=== PATIENT | male | born 1935 | race African-American/Black ===

== ENCOUNTER 2021-03-25 06:50 | Inpatient (IN) | payer MEDICARE, OTHER ==
[~2021-03-25] VITALS: Ht 182.9 cm; Wt 79.6 kg
[2021-03-25] MEDS: NOREPINEPHRINE 4 MG/D5%-WATER 250 ML IV PRN ×2 (06:50→10:54)
[2021-03-25 07:15] LABS: BASOPHILS % (AUTO) 0.9 % (0.0-2.0); EOSINOPHILS % (AUTO) 0.5 % (1.0-6.0); HEMATOCRIT 42.7 % (41-53); HEMOGLOBIN 13.2 g/dL (13.5-17.5); LYMPHOCYTES # (AUTO) 4.4 K/uL (1.0-4.8); MEAN CORPUSCULAR HEMOGLOBIN 30.9 pg (26.0-34.0); MEAN CORPUSCULAR HGB CONC 30.9 G/dL (31.0-37.0); MEAN CORPUSCULAR VOLUME 100 fL (80-100); MONOCYTES # (AUTO) 0.5 K/uL (0.1-1.0); MONOCYTES % (AUTO) 4.9 % (2.0-9.0); NEUTROPHILS # (AUTO) 4.5 K/uL (1.8-7.7); NEUTROPHILS % (AUTO) 47.7 % (40.0-70.0); PLATELET COUNT (AUTO) 288 K/uL (150-450); RED BLOOD CELL COUNT(AUTO) 4.27 MIL/uL (4.50-5.90); RED CELL DISTRIBUTION WIDTH 16.1 % (11.5-14.5)
[2021-03-25] MEDS ORDERED: SODIUM BICARBONATE 50 MEQ/50 ML VIAL ONE (07:17)
[2021-03-25] MEDS ORDERED: HEPARIN SODIUM 1000 UNITS/NS 1,000 ML ONE (07:17)
[2021-03-25] MEDS ORDERED: IOHEXOL 300 MG/ML 100 ML VIAL ONE (07:17)
[2021-03-25] MEDS ORDERED: IOHEXOL 300 MG/ML 150 ML VIAL ONE (07:17)
[2021-03-25] MEDS ORDERED: IOHEXOL 300 MG/ML 50 ML VIAL ONE (07:17)
[2021-03-25] MEDS ORDERED: LIDOCAINE/PF 1% 30 ML VIAL ONE (07:17)
[2021-03-25 07:28] LABS: ABG BASE EXCESS -22.6 mmol/L (-2.0-3.0); ABG CARBOXYHEMOGLOBIN 0.3 % (0.0-1.5); ABG METHEMOGLOBIN 0.3 % (0.0-1.5); ABG OXYGEN SATURATION 86.9 % (95.0-98.0); ABG OXYHEMOGLOBIN 86.4 % (94.0-100.0); ABG PCO2 89 mmHg (35-45); ABG PH 6.764 (7.35-7.450); ABG TOTAL HEMOGLOBIN 13.9 G/dL (12.0-18.0); PO2, ARTERIAL BG 93.3 mmHg (71.0-79.0); SOURCE, BLOOD GAS ARTERIAL; TEMPERATURE, FAHRENHEIT, BG 98.6 FAHREN (96.0-98.6)
[2021-03-25 07:29] LABS: ABG HCO3 7.7 mmol/L (22.0-26.0); INSPIRATORY TIME, BG 0 SEC; O2 DEVICE,BLOOD GAS VENTILATOR (ROOM AIR); PEEP,BG 0 cm H2O; SITE, BLOOD GAS RT FEMORAL; SPONTANEOUS VT, BG 620 ml; VT, ABG 550 ml
[2021-03-25 07:29] LABS: INR 1.5 (0.9-1.1); PROTHROMBIN TIME 15.2 SEC (9.4-11.6)
[2021-03-25 07:51] LABS: COVID AG,FIA SOURCE NASOPHARYNGEAL
[2021-03-25 07:56] VITALS: BP 92/58
[2021-03-25 07:56] LABS: CALCIUM, TOTAL 9.9 mg/dL (8.8-10.5); CREATININE 1.88 mg/dL (0.60-1.30); POTASSIUM 4.2 mmol/L (3.5-5.1)
[2021-03-25] MEDS ORDERED: VERAPAMIL HCL 2.5 MG/ML 2 ML VIAL ONE (07:57)
[2021-03-25] MEDS ORDERED: NITROGLYCERIN 50 MG/D5% WATER 250 ML ONE (07:58)
[2021-03-25 08:06] LABS: ALBUMIN 2.8 g/dL (3.4-5.0); BILIRUBIN,TOTAL 0.7 mg/dL (0.1-1.0); TOTAL PROTEIN, SERUM 7.4 g/dL (6.4-8.2)
[2021-03-25] MEDS ORDERED: FentaNYL CITRATE PF 100 MCG/2 ML VIAL ONE (08:08)
[2021-03-25] MEDS ORDERED: PHENYLEPHRINE 200 MG/D5%-WATER 0 ML IV ONE (08:10)
[2021-03-25] MEDS ORDERED: SODIUM CHLORIDE 0.9% 500 ML IV ONE (08:15)
[2021-03-25] MEDS ORDERED: IOHEXOL 300 MG/ML 150 ML VIAL IARTER ONE (08:15)
[2021-03-25] MEDS ORDERED: FentaNYL CITRATE PF 100 MCG/2 ML VIAL IVP ONE (08:15)
[2021-03-25] MEDS ORDERED: HEPARIN SODIUM 1000 UNITS/NS 1,000 ML IARTER ONE (08:15)
[2021-03-25] MEDS ORDERED: LIDOCAINE 1% 30 ML/SOD BICARB 8.4% 4 ML SQ ONE (08:15)
[2021-03-25] MEDS ORDERED: HEPARIN SODIUM,PORCINE 5,000 UNITS/ML VIAL IVP ONE (08:45)
[2021-03-25] MEDS ORDERED: MIDAZOLAM HCL 2 MG/2 ML VIAL ONE (08:50)
[2021-03-25] MEDS ORDERED: MIDAZOLAM HCL 2 MG/2 ML VIAL IVP ONE (09:00)
[2021-03-25 09:02] VITALS: BP 119/61
[2021-03-25] MEDS ORDERED: ASPIRIN 325 MG TABLET NG STA (09:13)
[2021-03-25] MEDS ORDERED: TICAGRELOR 90 MG TABLET NG STA (09:13)
[2021-03-25 09:20] VITALS: BP 143/71
[2021-03-25] MEDS: ATORVASTATIN CALCIUM 40 MG TABLET NG SCH (09:48)
[2021-03-25 09:50] LABS: ABG BASE EXCESS -14.6 mmol/L (-2.0-3.0); ABG CARBOXYHEMOGLOBIN 0.6 % (0.0-1.5); ABG HCO3 13.1 mmol/L (22.0-26.0); ABG METHEMOGLOBIN 0.3 % (0.0-1.5); ABG OXYGEN CONTENT 16.6 mL/dL (15.0-23.0); ABG OXYGEN SATURATION 87.9 % (95.0-98.0); ABG OXYHEMOGLOBIN 87.1 % (94.0-100.0); ABG PCO2 58 mmHg (35-45); ABG TOTAL HEMOGLOBIN 13.5 G/dL (12.0-18.0); PO2, ARTERIAL BG 73.3 mmHg (71.0-79.0); SOURCE, BLOOD GAS ARTERIAL
[2021-03-25 09:51] LABS: ABG PH 7.057 (7.35-7.450); O2 DEVICE,BLOOD GAS VENTILATOR (ROOM AIR); PEEP,BG 0 cm H2O; SITE, BLOOD GAS RT RADIAL; SPONTANEOUS VT, BG 700 ml; VT, ABG 550 ml
[2021-03-25] MEDS ORDERED: SODIUM BICARBONATE [ADULT] 8.4% 50 MEQ/50 ML SYRINGE IVP ONE ×2 (09:55→10:00)
[2021-03-25] MEDS ORDERED: ZOLPIDEM TARTRATE 5 MG TABLET PO PRN (10:00)
[2021-03-25] MEDS ORDERED: ONDANSETRON HCL 4 MG/2 ML VIAL IVP PRN (10:00)
[2021-03-25] MEDS ORDERED: ACETAMINOPHEN 325 MG TABLET PO PRN (10:00)
[2021-03-25] MEDS ORDERED: MORPHINE SULFATE 2 MG/ML SYRINGE IVP PRN (10:00)
[2021-03-25] MEDS ORDERED: HYDROCODONE/ACETAMINOPHEN 5-325 MG TABLET PO PRN (10:00)
[2021-03-25] MEDS ORDERED: BISACODYL 10 MG RECTAL RECTAL SUPPOSITORY PR PRN (10:00)
[2021-03-25] MEDS ORDERED: MAGNESIUM HYDROXIDE SUSPENSION 30 ML UDCUP PO PRN (10:00)
[2021-03-25] MEDS ORDERED: IOHEXOL 350 MG/ML 100 ML VIAL ONE (10:58)
[2021-03-25] MEDS ORDERED: SODIUM CHLORIDE 0.9% 100 ML ONE (10:58)
[2021-03-25] MEDS ORDERED: PROPOFOL 1000 MG/ISO-OSM 100 ML ONE (11:04)
[2021-03-25] MEDS ORDERED: FentaNYL CIT 1000MCG/0.9% NACL 100 ML IV PRN (11:15)
[2021-03-25] MEDS ORDERED: PROPOFOL 1000 MG/ISO-OSM 100 ML IV PRN (11:15)
[2021-03-25 12:00] VITALS: BP 119/73
[2021-03-25] MEDS ORDERED: SODIUM CHLORIDE 0.9% 1,000 ML IV ONE (12:00)
[2021-03-25 12:21] LABS: ABG BASE EXCESS -8.1 mmol/L (-2.0-3.0); ABG CARBOXYHEMOGLOBIN 0.3 % (0.0-1.5); ABG HCO3 18.1 mmol/L (22.0-26.0); ABG METHEMOGLOBIN 0.3 % (0.0-1.5); ABG OXYGEN CONTENT 17.1 mL/dL (15.0-23.0); ABG OXYGEN SATURATION 94.8 % (95.0-98.0); ABG OXYHEMOGLOBIN 94.2 % (94.0-100.0); ABG PCO2 40 mmHg (35-45); ABG PH 7.283 (7.35-7.450); ABG TOTAL HEMOGLOBIN 12.9 G/dL (12.0-18.0); PO2, ARTERIAL BG 68.9 mmHg (71.0-79.0); SOURCE, BLOOD GAS ARTERIAL; TEMPERATURE, FAHRENHEIT, BG 94.7 FAHREN (96.0-98.6)
[2021-03-25 12:22] LABS: SITE, BLOOD GAS LFT FEMORAL
[2021-03-25 12:23] LABS: O2 DEVICE,BLOOD GAS VENTILATOR (ROOM AIR); PEEP,BG 5 cm H2O; SPONTANEOUS VT, BG 555 ml; VT, ABG 550 ml
[2021-03-25] MEDS: PROPOFOL 1000 MG/ISO-OSM 100 ML IV PRN ×3 (12:53→22:50)
[2021-03-25 14:13] LABS: LACTIC ACID 8.1 mmol/L (0.4-2.0)
[2021-03-25] MEDS ORDERED: INFLUENZA VIRUS VACCINE QVS 2021-22 (6MO+)/PF 60 MCG/0.5 ML SYRINGE IM. ONE (15:15)
[2021-03-25] MEDS: FentaNYL CIT 1000MCG/0.9% NACL 100 ML IV PRN (15:22)
[2021-03-25 16:00] VITALS: BP 61/30
[2021-03-25] MEDS ORDERED: PHENYLEPHRINE HCL 800 MG in DEXTROSE 5%-WATER 170 ML IV PRN (16:15)
[2021-03-25] MEDS: VASOPRESSIN 40 UNITS in DEXTROSE 5%-WATER 98 ML IV PRN (16:26)
[2021-03-25] MEDS: NOREPINEPHRINE BITARTRATE 16 MG in DEXTROSE 5%-WATER 234 ML IV PRN (16:27)
[2021-03-25 17:00] LABS: BASOPHILS % (AUTO) 0.2 % (0.0-2.0); EOSINOPHILS % (AUTO) 0.1 % (1.0-6.0); HEMOGLOBIN 13.7 g/dL (13.5-17.5); LYMPHOCYTES # (AUTO) 0.5 K/uL (1.0-4.8); LYMPHOCYTES % (AUTO) 4.1 % (22.0-44.0); MEAN CORPUSCULAR HEMOGLOBIN 30.3 pg (26.0-34.0); MEAN CORPUSCULAR HGB CONC 31.9 G/dL (31.0-37.0); MEAN CORPUSCULAR VOLUME 95 fL (80-100); MONOCYTES # (AUTO) 0.8 K/uL (0.1-1.0); MONOCYTES % (AUTO) 6.7 % (2.0-9.0); NEUTROPHILS # (AUTO) 10.8 K/uL (1.8-7.7); PLATELET COUNT (AUTO) 358 K/uL (150-450); RED BLOOD CELL COUNT(AUTO) 4.53 MIL/uL (4.50-5.90); RED CELL DISTRIBUTION WIDTH 15.7 % (11.5-14.5)
[2021-03-25 17:08] LABS: NEUTROPHILS % (AUTO) 88.9 % (40.0-70.0)
[2021-03-25 17:10] LABS: CALCIUM, TOTAL 9.2 mg/dL (8.8-10.5); CREATININE 2.15 mg/dL (0.60-1.30); POTASSIUM 4.2 mmol/L (3.5-5.1)
[2021-03-25] MEDS ORDERED: HEPARIN SODIUM,PORCINE 1,000 UNITS/ML VIAL IVCATH PRN ×3 (17:15→17:30)
[2021-03-25] MEDS ORDERED: HEPARIN SODIUM 25000 UNITS/D5W 250 ML IV PRN (17:45)
[2021-03-25] MEDS ORDERED: HEPARIN SODIUM,PORCINE 5,000 UNITS/ML VIAL IVP PRN ×2 (17:45)
[2021-03-25 18:09] LABS: BASOPHILS % (AUTO) 0.2 % (0.0-2.0); EOSINOPHILS % (AUTO) 0 % (1.0-6.0); HEMATOCRIT 36.7 % (41-53); HEMOGLOBIN 12.1 g/dL (13.5-17.5); LYMPHOCYTES # (AUTO) 0.4 K/uL (1.0-4.8); LYMPHOCYTES % (AUTO) 3.5 % (22.0-44.0); MEAN CORPUSCULAR HEMOGLOBIN 30.7 pg (26.0-34.0); MEAN CORPUSCULAR VOLUME 93 fL (80-100); MONOCYTES # (AUTO) 0.6 K/uL (0.1-1.0); MONOCYTES % (AUTO) 5.9 % (2.0-9.0); NEUTROPHILS # (AUTO) 9.3 K/uL (1.8-7.7); PLATELET COUNT (AUTO) 321 K/uL (150-450); RED BLOOD CELL COUNT(AUTO) 3.96 MIL/uL (4.50-5.90); RED CELL DISTRIBUTION WIDTH 15.5 % (11.5-14.5)
[2021-03-25 18:10] LABS: NEUTROPHILS % (AUTO) 90.4 % (40.0-70.0)
[2021-03-25] MEDS ORDERED: EPINEPHrine 1:10,000 [1 MG/10 ML] SYRINGE ONE (18:19)
[2021-03-25 18:22] LABS: INR 1.4 (0.9-1.1); PROTHROMBIN TIME 14.2 SEC (9.4-11.6)
[2021-03-25 19:21] LABS: ABG BASE EXCESS -7.9 mmol/L (-2.0-3.0); ABG CARBOXYHEMOGLOBIN 0.6 % (0.0-1.5); ABG HCO3 19.5 mmol/L (22.0-26.0); ABG METHEMOGLOBIN 0.3 % (0.0-1.5); ABG OXYGEN CONTENT 18.4 mL/dL (15.0-23.0); ABG OXYGEN SATURATION 99.5 % (95.0-98.0); ABG OXYHEMOGLOBIN 98.6 % (94.0-100.0); ABG PCO2 23 mmHg (35-45); ABG PH 7.454 (7.35-7.450); ABG TOTAL HEMOGLOBIN 12.8 G/dL (12.0-18.0); SOURCE, BLOOD GAS ARTERIAL; TEMPERATURE, FAHRENHEIT, BG 98.6 FAHREN (96.0-98.6)
[2021-03-25 19:22] LABS: O2 DEVICE,BLOOD GAS VENTILATOR (ROOM AIR); PEEP,BG 5 cm H2O; SITE, BLOOD GAS ARTERIAL LINE; VT, ABG 550 ml
[2021-03-25 20:00] VITALS: BP 135/79
[2021-03-25] MEDS: PIPERACILLIN SODIUM/TAZOBACTAM 2.25 GM in DEXTROSE 5%-WATER 50 ML IV SCH (20:17)
[2021-03-25] MEDS ORDERED: SODIUM CHLORIDE 0.9% 250 ML IV ONE (20:37)
[2021-03-25] MEDS: TICAGRELOR 90 MG TABLET NG SCH (21:59)
[2021-03-25] MEDS: DOCUSATE SODIUM 100 MG CAPSULE PO SCH (21:59)
[2021-03-25] MEDS ORDERED: DOPamine 400MG/D5W[STANDARD] 250 ML IV PRN (22:00)
[2021-03-26] VITALS: BP 107/58
[2021-03-26 01:57] LABS: ABG BASE EXCESS -9.8 mmol/L (-2.0-3.0); ABG CARBOXYHEMOGLOBIN 0.2 % (0.0-1.5); ABG HCO3 18.1 mmol/L (22.0-26.0); ABG METHEMOGLOBIN 0.3 % (0.0-1.5); ABG OXYGEN CONTENT 19.6 mL/dL (15.0-23.0); ABG OXYGEN SATURATION 99.8 % (95.0-98.0); ABG OXYHEMOGLOBIN 99.3 % (94.0-100.0); ABG PCO2 24 mmHg (35-45); ABG TOTAL HEMOGLOBIN 12.9 G/dL (12.0-18.0); PO2, ARTERIAL BG 581.5 mmHg (71.0-79.0); SOURCE, BLOOD GAS ARTERIAL; TEMPERATURE, FAHRENHEIT, BG 98.6 FAHREN (96.0-98.6)
[2021-03-26 01:58] LABS: O2 DEVICE,BLOOD GAS VENTILATOR (ROOM AIR); PEEP,BG 5 cm H2O; SITE, BLOOD GAS ARTERIAL LINE; VT, ABG 550 ml
[2021-03-26] MEDS: PIPERACILLIN SODIUM/TAZOBACTAM 2.25 GM in DEXTROSE 5%-WATER 50 ML IV SCH ×3 (02:30→13:40)
[2021-03-26 04:00] VITALS: BP 93/50
[2021-03-26] MEDS: PROPOFOL 1000 MG/ISO-OSM 100 ML IV PRN (04:12)
[2021-03-26 06:44] LABS: HEMOGLOBIN A1C 5.8 % (3.8-5.6)
[2021-03-26 06:46] LABS: HEMATOCRIT 35.3 % (41-53); HEMOGLOBIN 11.6 g/dL (13.5-17.5); MEAN CORPUSCULAR HEMOGLOBIN 30.5 pg (26.0-34.0); MEAN CORPUSCULAR HGB CONC 32.9 G/dL (31.0-37.0); MEAN CORPUSCULAR VOLUME 93 fL (80-100); PLATELET COUNT (AUTO) 287 K/uL (150-450); RED BLOOD CELL COUNT(AUTO) 3.81 MIL/uL (4.50-5.90); RED CELL DISTRIBUTION WIDTH 15.5 % (11.5-14.5)
[2021-03-26 07:05] LABS: ALBUMIN 2.3 g/dL (3.4-5.0); BILIRUBIN,TOTAL 0.9 mg/dL (0.1-1.0); CALCIUM, TOTAL 8.3 mg/dL (8.8-10.5); CHOL/HDL RATIO 2.3 (4.2-7.3); CREATININE 2.52 mg/dL (0.60-1.30); MAGNESIUM 2.2 mg/dL (1.80-2.40); POTASSIUM 3.6 mmol/L (3.5-5.1); THYROID STIMULATING HORMONE 2.43 uIU/mL (0.36-3.74); TOTAL PROTEIN, SERUM 6.2 g/dL (6.4-8.2)
[2021-03-26 08:00] VITALS: BP 130/63
[2021-03-26] MEDS: FentaNYL CIT 1000MCG/0.9% NACL 100 ML IV PRN (08:29)
[2021-03-26] MEDS: DOCUSATE SODIUM 100 MG CAPSULE PO SCH (08:30)
[2021-03-26] MEDS: TICAGRELOR 90 MG TABLET NG SCH (08:30)
[2021-03-26] MEDS: ATORVASTATIN CALCIUM 40 MG TABLET NG SCH (08:31)
[2021-03-26 08:46] LABS: BAND NEUTROPHILS % (MANUAL) 18 % (0-5); LYMPHOCYTES % (MANUAL) 9 % (22-44); MONOCYTES % (MANUAL) 4 % (2-9); SEGMENTED NEUTROPHILS % 69 % (40-70)
[2021-03-26] MEDS ORDERED: ETHYL ALCOHOL 62% ANTISEPTIC NASAL INHALANT 0.6 ML AMPUL NASAL SCH (09:00)
[2021-03-26] MEDS ORDERED: PANTOPRAZOLE SODIUM 40 MG/VIAL IVP SCH (09:00)
[2021-03-26] MEDS ORDERED: ASPIRIN 81 MG CHEWABLE TABLET NG SCH (09:00)
[2021-03-26] MEDS ORDERED: PANTOPRAZOLE SODIUM 40 MG DR TABLET PO SCH (09:00)
[2021-03-26] MEDS ORDERED: MORPHINE SULFATE 100 MG/NS/PF 100 ML IV PRN (10:45)
[2021-03-26] MEDS ORDERED: DiphenhydrAMINE HCL 50 MG/ML VIAL IVP PRN (10:45)
[2021-03-26] MEDS ORDERED: ONDANSETRON HCL 4 MG/2 ML VIAL IVP PRN (10:45)
[2021-03-26 12:00] VITALS: BP 106/53
[2021-03-26] MEDS: NOREPINEPHRINE BITARTRATE 16 MG in DEXTROSE 5%-WATER 234 ML IV PRN (12:40)
[2021-03-26] MEDS: VASOPRESSIN 40 UNITS in DEXTROSE 5%-WATER 98 ML IV PRN (12:41)
[2021-03-26 16:00] VITALS: BP 110/44
== END 2021-03-26 17:00 | DRG 246 ==
LOC: EMS 06:50 → EDBD 06:50 → EDUNIT# 06:50 → ICU 08:04
PROVIDERS: ADMIT Internal Medicine; ATTEND Internal Medicine
PROC: 027034Z Dilation of Coronary Artery, One Artery with Drug-eluting Intraluminal Device, Percutaneous Approach (ICD-10-PCS; principal; 2021-03-25)
PROC: 4A023N7 Measurement of Cardiac Sampling and Pressure, Left Heart, Percutaneous Approach (ICD-10-PCS; 2021-03-25)
PROC: B2111ZZ Fluoroscopy of Multiple Coronary Arteries using Low Osmolar Contrast (ICD-10-PCS; 2021-03-25)
PROC: 6A750Z5 Ultrasound Therapy of Heart, Single (ICD-10-PCS; 2021-03-25)
PROC: 5A1945Z Respiratory Ventilation, 24-96 Consecutive Hours (ICD-10-PCS; 2021-03-25)
PROC: 0BH17EZ Insertion of Endotracheal Airway into Trachea, Via Natural or Artificial Opening (ICD-10-PCS; 2021-03-25)
PROC: 06HY33Z Insertion of Infusion Device into Lower Vein, Percutaneous Approach (ICD-10-PCS; 2021-03-25)
PROC: 06HY33Z Insertion of Infusion Device into Lower Vein, Percutaneous Approach (ICD-10-PCS; 2021-03-25)
PROC: 04HY32Z Insertion of Monitoring Device into Lower Artery, Percutaneous Approach (ICD-10-PCS; 2021-03-25)
PROC: 4A133B1 Monitoring of Arterial Pressure, Peripheral, Percutaneous Approach (ICD-10-PCS; 2021-03-25)
PROC: 4A133J1 Monitoring of Arterial Pulse, Peripheral, Percutaneous Approach (ICD-10-PCS; 2021-03-25)
DX: I21.3 ST elevation (STEMI) myocardial infarction of unspecified site (principal); J96.00 Acute respiratory failure, unspecified whether with hypoxia or hypercapnia; K66.1 Hemoperitoneum; I26.99 Other pulmonary embolism without acute cor pulmonale; N17.9 Acute kidney failure, unspecified; E87.2 Acidosis; G93.1 Anoxic brain damage, not elsewhere classified; Z20.822 Contact with and (suspected) exposure to COVID-19; W06.XXXA Fall from bed, initial encounter; Z66 Do not resuscitate; Z51.5 Encounter for palliative care; I12.9 Hypertensive chronic kidney disease with stage 1 through stage 4 chronic kidney disease, or unspecified chronic kidney disease; N18.9 Chronic kidney disease, unspecified; I46.9 Cardiac arrest, cause unspecified; M54.2 Cervicalgia; R00.1 Bradycardia, unspecified; R34 Anuria and oliguria; R57.0 Cardiogenic shock; I25.10 Atherosclerotic heart disease of native coronary artery without angina pectoris; Y93.89 Activity, other specified; Y92.89 Other specified places as the place of occurrence of the external cause; Y99.8 Other external cause status; R00.0 Tachycardia, unspecified
CPT/HCPCS: 31500; 36600; 70450; 71045; 71275; 75960; 76770; 80048; 80053; 80061; 82805; 83036; 83605; 83690; 83735; 83880; 84100; 84132; 84443; 84484; 85025; 85610; 85730; 87081; 92920; 92928; 92950; 93005; 93306; 94002; 94003; 99291; C9113; G0378; J0171; J1265; J1644; J2250; J2270; J2370; J2543; J2704; J3010; J3490; J7030; J7040; J7050; J7060; Q9967; 36415-L1; 36415-TC; U0003; Z7610